=== PATIENT | female | born 1980 | race Caucasian/White ===

== ENCOUNTER 2018-12-09 08:30 | Emergency (ER) | payer SELFPAY ==
[2018-12-09] MEDS ORDERED: Sodium Chloride 0.9% 10 ML Syringe FLUSH PRN (09:08)
[2018-12-09] MEDS ORDERED: cefTRIAXone 1 GM in Sodium Chloride 0.9% 100 ML IV ONE (09:09)
[2018-12-09] MEDS ORDERED: Acetaminophen/oxyCODONE 325-5 MG Tab PO ONE (09:09)
[2018-12-09] MEDS ORDERED: Doxycycline 100 MG Cap PO ONE (09:11)
--- NOTE | 2018-12-09 09:13 | EDM.PDOC ---
ED HPI GENERAL MEDICAL PROBLEM - General Chief Complaint: Skin Complaint Stated Complaint: SKIN COMPLAINT - ABDOMEN Time Seen by Provider: 12/09/18 09:09 Source of Information: Reports: Patient History Limitations: Reports: No Limitations - History of Present Illness INITIAL COMMENTS - FREE TEXT/NARRATIVE: 38-year-old female presents to the ED with a pustule that developed on her left lower abdomen about 5 days ago that has now developed into a subcutaneous abscess. She has no systemic signs of illness such as fever chills nausea or vomiting. Pain is well localized area and it started to open up and drained. Maternal yesterday. He has recovered up with bandages. 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 She is not a diabetic. Onset: Gradual Onset Date: 12/04/18 Duration: Day(s):, Getting Worse Location: Reports: Abdomen Quality: Reports: Ache (Anteriorly), Throbbing Severity: Moderate Improves with: Reports: None Worsens with: Reports: Other (Touch) Context: Denies: Activity, Exercise, Lifting, Sick Contact, Trauma, Other Associated Symptoms: Reports: No Other Symptoms. 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.) Left Upper Abdomen Pain Score (Numeric/FACES): 8 - Related Data Allergies Allergy/AdvReac Type Severity Reaction Status Date / Time divalproex sodium Allergy Hives Verified 12/09/18 08:43 [From Depakote] Home Meds: Home Meds Doxycycline [Vibramycin] 100 mg PO BID #20 cap 12/09/18 [Rx] oxyCODONE HCl/Acetaminophen [Percocet 5-325 mg Tablet] 1 - 2 each PO Q4H PRN # 12 tablet 12/09/18 [Rx] Past Medical History Respiratory History: Reports: Asthma Genitourinary History: Reports: Other (See Below) Other Genitourinary History: recnstructed bladder 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 She had to have a total hysterectomy has was attached to her bladder and intestines . She reports she has very poor venous access since she's had some any blood transfusions and surgeries. She had surgery in [place] with her first but unfortunately this did not survive Social & Family History - Tobacco Use Smoking Status *Q: Never Smoker - Caffeine Use Caffeine Use: Reports: Coffee - Recreational Drug Use Recreational Drug Use: Yes Drug Use in Last 12 Months: No Recreational Drug Type: Reports: Marijuana/Hashish Other Recreational Drug Type: "when I was young" - Living Situation & Occupation Living situation: Reports: Occupation: Employed ED ROS GENERAL - Review of Systems Review Of Systems: See Below Constitutional: Denies: Fever, Chills, Malaise, Weakness, Fatigue, Decreased Appetite, Weight Loss HEENT: Reports: No Symptoms Respiratory: Reports: No Symptoms Cardiovascular: Reports: No Symptoms Endocrine: Reports: No Symptoms GI/Abdominal: Reports: Abdominal Pain (At site of abscess left mid and lower abdomen.) : Reports: No Symptoms Musculoskeletal: Reports: No Symptoms Skin: Reports: No Symptoms Neurological: Reports: No Symptoms Psychiatric: Reports: No Symptoms Hematologic/Lymphatic: Reports: No Symptoms Immunologic: Reports: No Symptoms ED EXAM, SKIN/RASH Exam: See Below Exam Limited By: No Limitations General Appearance: Alert, WD/WN, Anxious Respiratory/Chest: No Respiratory Distress, Lungs Clear, Normal Breath Sounds, No Accessory Muscle Use, Chest Non-Tender Cardiovascular: Normal Peripheral Pulses, Regular Rate, Rhythm, No Edema, No Gallop, No Murmur, No Rub GI/Abdominal: Other (Evidence of multiple abdominal surgeries and midline from infraumbilical to pubic symphysis. She currently has an abscess left mid abdominal wall that is approximately 7 cm in diameter. It is firm and indurated and was able to express purulent material just by gentle squeeze to obtain culture report.) Back Exam: Normal Inspection, Full Range of Motion. No: CVA Tenderness (L), CVA Tenderness (R) Extremities: Normal Inspection, Normal Range of Motion, Non-Tender, No Pedal Edema, Normal Capillary Refill Neurological: Alert, Oriented, CN II-XII Intact, Normal Cognition Psychiatric: Normal Affect, Normal Mood Skin: Warm, Dry, Erythema (Abscess left lower quadrant that are as described above with marked surrounding erythema and draining purulent material.) Location, Skin: Abdomen (Left mid lower abdomen) Characteristics: Maculopapular, Confluent Associated features: Warmth, Tenderness, Swelling, Induration, Inflammation, Weeping (Oozing purulent material.) Course - Vital Signs Last Recorded V/S: Last Vital Signs Temp 36.9 C 12/09/18 08:44 Pulse 84 12/09/18 08:44 Resp 16 12/09/18 08:44 BP 143/82 H 12/09/18 08:44 Pulse Ox 100 12/09/18 08:44 - Orders/Labs/Meds Orders: Active Orders 24 hr Category Date Time Status Peripheral IV Care [RC] . DIRECTED Care 12/09/18 09:08 Active CULTURE WOUND [RM] Stat Lab 12/09/18 09:00 Received Peripheral IV Insertion Adult [OM.PC] Stat Oth 12/09/18 09:08 Ordered Meds: Medications Discontinued Medications Generic Name Dose Route Start Last Admin Trade Name Freq PRN Reason Stop Dose Admin Doxycycline Hyclate 200 mg 12/09/18 09:11 12/09/18 09:28 Vibramycin PO 12/09/18 09:12 200 mg ONETIME ONE Administration Ceftriaxone Sodium 1 gm/ 100 mls @ 200 mls/hr 12/09/18 09:09 12/09/18 09:31 Sodium Chloride IV 12/09/18 09:38 200 mls/hr ONETIME ONE Administration Ketorolac Tromethamine 30 mg 12/09/18 09:15 12/09/18 09:29 Toradol IVPUSH 30 mg ONETIME SADA Administration Oxycodone/Acetaminophen 1 tab 12/09/18 09:09 12/09/18 09:27 Percocet 325-5 Mg PO 12/09/18 09:10 1 tab ONETIME ONE Administration Sodium Chloride 10 ml 12/09/18 09:08 12/09/18 09:34 Saline Flush FLUSH 10 ml ASDIRECTED PRN Administration Keep Vein Open - Radiology Interpretation Free Text/Narrative:: 38-year-old female presents to the ED with a evolving abscess left lower mid abdominal wall. She states she is prone to staph aureus infections and boils. This one started with a small pustule about 5 days ago and is now progressed into an abscess that is no subcutaneous. I was able to express some serosanguineous material and purulent material from the wound. Once was open and draining I used a curved hemostat and to simply open up the wound and expressed proximal be a teaspoon of pus. The wound will be irrigated and some saline gauze instilled. I will be to give her 2 g of Rocephin intravenously and oral doxycycline 200 mg now. Given Toradol 30 mg IV and 1 Percocet orally. Lucia will be able to obtain IV access at this time. - Re-Assessments/Exams Free Text/Narrative Re-Assessment/Exam: 12/09/18 10:11 IV has been established. Patient received Toradol 30 mg IV and Percocet tablet by mouth. Receive 2 g of Rocephin intravenously and doxycycline 200 mg per ora. Be discharged on dicyclomine 100 mg twice daily for the next 10 days for abdominal wall abscess. Of note the wound was packed with saline soaked Tubegauze which is to remain in place for 48 hours. Advised follow-up with her personal care physician in 48 hours time to have the packing removed and to make sure the wound is healing adequately. Departure - Departure Time of Disposition: 10:37 Disposition: Home, Self-Care 01 Condition: Fair Clinical Impression: Abscess of abdominal wall - Discharge Information *PRESCRIPTION DRUG MONITORING PROGRAM REVIEWED*: Not Applicable *COPY OF PRESCRIPTION DRUG MONITORING REPORT IN PATIENT GOLDY: Not Applicable Prescriptions: Doxycycline [Vibramycin] 100 mg PO BID #20 cap oxyCODONE HCl/Acetaminophen [Percocet 5-325 mg Tablet] 1 - 2 each PO Q4H PRN # 12 tablet PRN Reason: pain relief. Referrals: PCP,None [Primary Care Provider] - Forms: ED Department Discharge Additional Instructions: Evaluation the emergency room today in regards to development of a abdominal wall abscess left lower mid abdomen. This started as a pustule and then became and subcutaneous infection over the last 5 days. The wound was already open and starting to drain. I will put it up further with a hemostat and obtained about a teaspoon of millie pus. Cultures were obtained. She'll IV antibiotics were given in the ED Rocephin 2 g and oral doxycycline 200 mg. He also received pain medication Toradol 30 mg IV as well as Percocet tablet by mouth. Suggest continue Motrin 600 mg every 6 hours and Percocet tabs 5/325 one or 2 every 4-6 hours for pain relief as needed. The wound has been packed with a saline-soaked Tubegauz. This should remain in place for 48 hours and then you may remove it. Then filled the wound with antibiotic ointment such as bacitracin or Polysporin at bedtime and cover with a bandage. Showering daily is okay. Expect the wound to look much better over the next 48-72 hours and should be pretty well back to normal within 7 days. Continue antibiotic doxycycline 100 mg twice daily for the next 10 days to clear up infection completely. With personal care physician or return to the ED if not markedly improved in 72 hours time. - My Orders Last 24 Hours: My Active Orders 12/09/18 09:00 CULTURE WOUND [RM] Stat 12/09/18 09:08 Peripheral IV Care [RC] . DIRECTED Peripheral IV Insertion Adult [OM.PC] Stat - Assessment/Plan Last 24 Hours: My Active Orders 12/09/18 09:00 CULTURE WOUND [RM] Stat 12/09/18 09:08 Peripheral IV Care [RC] . DIRECTED Peripheral IV Insertion Adult [OM.PC] Stat
[2018-12-09] MEDS ORDERED: Ketorolac 30 MG/ML SDV IVPUSH SCH (09:15)
== END 2018-12-09 10:38 | disposition home or self-care (01) ==
LOC: JD.ED 08:30
DX: L02.211 Cutaneous abscess of abdominal wall (principal); Z88.8 Allergy status to other drugs, medicaments and biological substances
CPT/HCPCS: 87070; 96365; 96375; 99284; A9270; J0696; J1885; J7030; 87077; 87186

== ENCOUNTER 2018-12-10 21:11 | Emergency (ER) | payer SELFPAY ==
[2018-12-10] MEDS ORDERED: Sodium Chloride 0.9% 1,000 ML IV ONE (22:05)
[2018-12-10] MEDS ORDERED: Ketorolac 30 MG/ML SDV IVPUSH ONE (22:05)
--- NOTE | 2018-12-10 22:18 | EDM.PDOC ---
ED HPI GENERAL MEDICAL PROBLEM - General Chief Complaint: Skin Complaint Stated Complaint: MRSA LEFT SIDE OF ABDOMIN Time Seen by Provider: 12/10/18 21:20 Source of Information: Reports: Patient, Family History Limitations: Reports: No Limitations - History of Present Illness INITIAL COMMENTS - FREE TEXT/NARRATIVE: Pt is 38 yo F comes in today with sister after being seen yesterday here in the ED for increasing redness, pain, and possible fever regarding an abdominal abscess. The abscess was drained and packed yesterday, culture was taken ( preliminary shows probable MRSA), and she was given IV Rocephin and sent home with Percocet and Doxycycline x 10 days. She states the pain has gotten so bad that any movement makes it worse and she is only comfortable when laying down. She feels "hot", has her thermostat lower than usual, but is unsure if she has fever, as she has been taking Percocet and Advil. She is also c/o nausea and vomiting which started last night, and is unable to keep food and liquids down. The redness seems to be increasing and overall she feels worse. No other complaints at this time. Treatments PILLAR MAN: Reports: Other (see below) Other Treatments PILLAR MAN: oxyod/apap Right Upper Abdomen Pain Score (Numeric/FACES): 9 - Related Data Allergies Allergy/AdvReac Type Severity Reaction Status Date / Time divalproex sodium Allergy Hives Verified 12/09/18 08:43 [From Depakote] Home Meds: Home Meds Doxycycline [Vibramycin] 100 mg PO BID #20 cap 12/09/18 [Rx] oxyCODONE HCl/Acetaminophen [Percocet 5-325 mg Tablet] 1 - 2 each PO Q4H PRN # 12 tablet 12/09/18 [Rx] Ondansetron [Zofran ODT] 4 mg PO Q6H PRN #8 tab.dis 12/10/18 [Rx] oxyCODONE HCl/Acetaminophen [Percocet 5-325 mg Tablet] 1 - 2 each PO Q4H PRN # 12 tablet 12/10/18 [Rx] Past Medical History Respiratory History: Reports: Asthma Genitourinary History: Reports: Other (See Below) Other Genitourinary History: recnstructed bladder 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 She had to have a total hysterectomy has was attached to her bladder and intestines . She reports she has very poor venous access since she's had some any blood transfusions and surgeries. She had surgery in [place] with her first but unfortunately this did not survive Social & Family History - Tobacco Use Smoking Status *Q: Never Smoker - Caffeine Use Caffeine Use: Reports: Coffee - Recreational Drug Use Recreational Drug Use: No - Living Situation & Occupation Living situation: Reports: Occupation: Employed ED ROS GENERAL - Review of Systems Review Of Systems: See Below Constitutional: Reports: Fever, Chills. Denies: Decreased Appetite HEENT: Reports: No Symptoms Respiratory: Reports: No Symptoms. Denies: Shortness of Breath, Cough Cardiovascular: Reports: No Symptoms. Denies: Chest Pain Endocrine: Reports: No Symptoms GI/Abdominal: Reports: Abdominal Pain (LUQ where abscess is), Nausea, Vomiting. Denies: Decreased Appetite : Reports: No Symptoms Musculoskeletal: Reports: No Symptoms Skin: Reports: No Symptoms Neurological: Reports: No Symptoms Psychiatric: Reports: No Symptoms Hematologic/Lymphatic: Reports: No Symptoms Immunologic: Reports: No Symptoms ED EXAM, SKIN/RASH Exam: See Below Exam Limited By: No Limitations General Appearance: Alert, WD/WN, Mild Distress Eye Exam: Bilateral Eye: EOMI, Normal Inspection, PERRL Ears: Normal External Exam, Hearing Grossly Normal Nose: Normal Inspection, Normal Mucosa, No Blood Throat/Mouth: Normal Inspection, Normal Lips, Normal Teeth, Normal Gums, Normal Oropharynx, Normal Voice, No Airway Compromise Head: Atraumatic, Normocephalic Neck: Normal Inspection, Supple, Non-Tender, Full Range of Motion Respiratory/Chest: No Respiratory Distress, Lungs Clear, Normal Breath Sounds, No Accessory Muscle Use, Chest Non-Tender Cardiovascular: Normal Peripheral Pulses, Regular Rate, Rhythm, No Edema, No Gallop, No JVD, No Murmur, No Rub GI/Abdominal: Normal Bowel Sounds, Soft, No Organomegaly, No Distention, No Abnormal Bruit, No Mass, Guarding, Tender (RUQ) Back Exam: Normal Inspection Skin: Warm, Dry, Erythema, Increased Warmth, Wound/Incision (RUQ abscess s/p I& D w/ packing inside) Associated features: Warmth, Tenderness, Swelling, Inflammation, Weeping Course - Vital Signs Last Recorded V/S: Last Vital Signs Temp 97.8 F 12/10/18 21:29 Pulse 78 12/10/18 21:29 Resp 20 12/10/18 21:29 BP 106/66 12/10/18 21:29 Pulse Ox 98 12/10/18 21:29 - Orders/Labs/Meds Orders: Active Orders 24 hr Category Date Time Status COMPREHENSIVE METABOLIC PN,CMP [CHEM] Stat Lab 12/10/18 22:00 Received CULTURE BLOOD [BC] Stat Lab 12/10/18 22:38 Received CULTURE BLOOD [BC] Stat Lab 12/10/18 22:43 Received LACTIC ACID [CHEM] Stat Lab 12/10/18 22:38 Received Sodium Chloride 0.9% [Normal Saline] 1,000 ml Med 12/10/18 22:05 Active IV ONETIME Blood Culture x2 Reflex Set [OM.PC] Stat Oth 12/10/18 22:05 Ordered Medication Orders Sodium Chloride (Normal Saline) 1,000 mls @ 999 mls/hr IV ONETIME ONE Stop: 12/10/18 23:05 Last Admin: 12/10/18 22:17 Dose: 999 mls/hr Labs: Laboratory Tests 12/10/18 Range/Units 22:00 WBC 6.65 (3.98-10.04) K/mm3 RBC 4.91 (3.98-5.22) M/mm3 Hgb 14.2 (11.2-15.7) gm/L Hct 41.5 (34.1-44.9) % MCV 84.5 (79.4-94.8) fl MCH 28.9 (25.6-32.2) pg MCHC 34.2 (32.2-35.5) g/dl RDW Std Deviation 39.2 (36.4-46.3) fL Plt Count 292 (182-369) K/mm3 MPV 9.7 (9.4-12.3) fl Neut % (Auto) 57.4 (34.0-71.1) % Lymph % (Auto) 31.7 (19.3-51.7) % [place] % (Auto) 8.1 (4.7-12.5) % Eos % (Auto) 2.4 (0.7-5.8) Baso % (Auto) 0.2 (0.1-1.2) % Neut # (Auto) 3.82 (1.56-6.13) K/mm3 Lymph # (Auto) 2.11 (1.18-3.74) K/mm3 [place] # (Auto) 0.54 H (0.24-0.36) K/mm3 Eos # (Auto) 0.16 (0.04-0.36) K/mm3 Baso # (Auto) 0.01 (0.01-0.08) K/mm3 Meds: Medications Generic Name Dose Route Start Last Admin Trade Name Freq PRN Reason Stop Dose Admin Sodium Chloride 1,000 mls @ 999 mls/hr 12/10/18 22:05 12/10/18 22:17 Normal Saline IV 12/10/18 23:05 999 mls/hr ONETIME ONE Administration Discontinued Medications Generic Name Dose Route Start Last Admin Trade Name Freq PRN Reason Stop Dose Admin Ketorolac Tromethamine 30 mg 12/10/18 22:05 12/10/18 22:17 Toradol IVPUSH 12/10/18 22:06 30 mg ONETIME ONE Administration - Re-Assessments/Exams Free Text/Narrative Re-Assessment/Exam: 12/10/18 22:05 I have ordered CBC, CMP, LA, Blood Cultures IVF as she has been having N/V Toradol for pain 12/10/18 22:49 CBC WNL 12/10/18 23:03 Pt is feeling better and would like to go home. At this time, there does not seem to be a systemic infection and therefore reasonable to send pt home. Will call her if there is any abnormalities in her CMP, LA, or blood cultures. She has requested more pain medication, as she only has 1 Percocet left. I will give her another prescription as well as Zofran. She is agreeable to this plan. Advised to return to ED if symptoms continue to worsen. Departure - Departure Time of Disposition: 22:53 Disposition: Home, Self-Care 01 Condition: Fair Clinical Impression: Abscess - Discharge Information *PRESCRIPTION DRUG MONITORING PROGRAM REVIEWED*: Not Applicable *COPY OF PRESCRIPTION DRUG MONITORING REPORT IN PATIENT GOLDY: Not Applicable Prescriptions: Ondansetron [Zofran ODT] 4 mg PO Q6H PRN #8 tab.dis PRN Reason: Nausea oxyCODONE HCl/Acetaminophen [Percocet 5-325 mg Tablet] 1 - 2 each PO Q4H PRN # 12 tablet PRN Reason: Pain Instructions: Incision and Drainage, Care After, Skin Abscess, [id number] Referrals: PCP,None [Primary Care Provider] - Forms: ED Department Discharge Additional Instructions: You were seen in the ED today for increasing pain, redness, nausea and vomiting due to abdominal abscess. At this time, your workup was benign for infection spreading to the rest of the body. You will be called if there are any abnormalities found in your other labs. Unfortunately, this will get worse before it gets better. You were given IV fluids here and pain medication for relief. It is reasonable to send you home at this time to continue the original plan of Doxycycline x 10days and cleaning the wound as directed by the previous provider. You will be sent home with a prescription for Zofran and Percocet. Recommend follow up with your primary care provider. Return to ED if new or worsening symptoms. - My Orders Last 24 Hours: My Active Orders 12/10/18 22:00 COMPREHENSIVE METABOLIC PN,CMP [CHEM] Stat 12/10/18 22:05 Sodium Chloride 0.9% [Normal Saline] 1,000 ml IV ONETIME Blood Culture x2 Reflex Set [OM.PC] Stat 12/10/18 22:38 CULTURE BLOOD [BC] Stat LACTIC ACID [CHEM] Stat 12/10/18 22:43 CULTURE BLOOD [BC] Stat - Assessment/Plan Last 24 Hours: My Active Orders 12/10/18 22:00 COMPREHENSIVE METABOLIC PN,CMP [CHEM] Stat 12/10/18 22:05 Sodium Chloride 0.9% [Normal Saline] 1,000 ml IV ONETIME Blood Culture x2 Reflex Set [OM.PC] Stat 12/10/18 22:38 CULTURE BLOOD [BC] Stat LACTIC ACID [CHEM] Stat 12/10/18 22:43 CULTURE BLOOD [BC] Stat
== END 2018-12-10 23:31 | disposition home or self-care (01) ==
LOC: JD.ED 21:11
DX: L02.211 Cutaneous abscess of abdominal wall (principal); Z88.8 Allergy status to other drugs, medicaments and biological substances
CPT/HCPCS: 36415; 80053; 83605; 85025; 87040; 96361; 96374; 99284; J1885; J7040

== ENCOUNTER 2018-12-23 18:01 | Emergency (ER) | payer SELFPAY ==
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
[2018-12-23] MEDS ORDERED: Sodium Chloride 0.9% 1,000 ML IV SCH (18:30)
[2018-12-23] MEDS ORDERED: Nitrofurantoin Monohydrate/Macrocrystalline 100 MG Cap PO ONE (20:06)
== END 2018-12-23 20:34 | disposition home or self-care (01) ==
LOC: JD.ED 18:01
DX: S31.101A Unspecified open wound of abdominal wall, left upper quadrant without penetration into peritoneal cavity, initial encounter (principal); N39.0 Urinary tract infection, site not specified; F41.9 Anxiety disorder, unspecified; F32.9 Major depressive disorder, single episode, unspecified; Z88.8 Allergy status to other drugs, medicaments and biological substances; V89.2XXA Person injured in unspecified motor-vehicle accident, traffic, initial encounter; Y92.512 Supermarket, store or market as the place of occurrence of the external cause
CPT/HCPCS: 36415; 80053; 81003; 85025; 87804; 96360; 99284; A9270; J7040; 99283

== ENCOUNTER 2023-11-12 17:53 | Emergency (ER) | payer MEDICAID, OTHER ==
[2023-11-12] MEDS ORDERED: Sodium Chloride 0.9% 10 ML Syringe FLUSH PRN (18:24)
[2023-11-12 19:09] LABS: BASOPHILS PERCENT AUTO 0.5 % (0.0-1.0); EOSINOPHILS ABSOLUTE AUTO 0.1 K/mm3 (0.0-0.4); EOSINOPHILS PERCENT AUTO 1.3 % (0.0-6.0); HEMATOCRIT 40.9 % (37.0-47.0); HEMOGLOBIN 14.7 gm/dl (12.0-16.0); IMMATURE GRAN ABSOLUTE AUTO 0.04 K/mm3 (0.00-0.05); IMMATURE GRAN PERCENT AUTO 0.5 % (0.0-0.4); LYMPHOCYTES ABSOLUTE AUTO 2.2 K/mm3 (1.0-4.8); LYMPHOCYTES PERCENT AUTO 26.2 % (24.0-44.0); MEAN CORPUSCULAR HEMOGLOBIN 30.9 pg (28.0-32.0); MEAN CORPUSCULAR HGB CONC 35.9 g/dl (32.0-36.0); MEAN CORPUSCULAR VOLUME 86.1 fl (83.0-99.0); MEAN PLATELET VOLUME 9.5 fl (9.4-12.3); MONOCYTES ABSOLUTE AUTO 0.7 K/mm3 (0.0-0.8); MONOCYTES PERCENT AUTO 7.9 % (0.0-8.0); NEUTROPHILS ABSOLUTE AUTO 5.4 K/mm3 (1.8-7.7); NEUTROPHILS PERCENT AUTO 63.6 % (41.0-71.0); PLATELET COUNT,PLT 246 K/mm3 (150-400); RED BLOOD CELL COUNT 4.75 M/mm3 (4.10-5.30); WHITE BLOOD CELL COUNT,WBC 8.43 K/mm3 (3.9-11.3)
[2023-11-12 19:26] LABS: A/G RATIO 1.3 (1-2); ALANINE AMINOTRANSFERASE,ALT 18 U/L (14-59); ALBUMIN 4.3 g/dl (3.4-5.0); ALKALINE PHOSPHATASE 43 U/L (46-116); ANION GAP 13.7 (5-15); ASPARTATE AMNIOTRANSFERASE,AST 8 U/L (15-37); BILIRUBIN TOTAL 0.3 mg/dL (0.2-1.0); BLOOD UREA NITROGEN,BUN 11 mg/dL (7-18); BUN/CREATININE RATIO 13.8 (14-18); CALCIUM 9.2 mg/dL (8.5-10.1); CARBON DIOXIDE,CO2 26 mEq/L (21-32); CHLORIDE,CL 102 mEq/L (98-107); CREATININE 0.8 mg/dL (0.55-1.02); EST CRCL DRUG DOSING (CG) 72.45 mL/min; ESTIMATED GFR 94 mL/min (>60); GLUCOSE RANDOM 97 mg/dL (70-99); LIPASE 23 U/L (16-77); POTASSIUM,K 3.7 mEq/L (3.5-5.1); PROTEIN TOTAL,TP 7.7 g/dl (6.4-8.2); SODIUM,NA 138 mEq/L (136-145); TROPONIN I HIGH SENSITIVITY < 4 pg/mL (<=51)
[2023-11-12 19:52] LABS: CORONAVIRUS COVID-19 NAA NEGATIVE (NEGATIVE); INFLUENZA A NAA NEGATIVE (NEGATIVE); RESPIRATORY SYNCYTIAL VIR NAA NEGATIVE (NEGATIVE)
== END 2023-11-12 20:13 | disposition home or self-care (01) ==
LOC: JD.ED 17:53
DX: R07.9 Chest pain, unspecified (principal); M25.512 Pain in left shoulder; Z88.8 Allergy status to other drugs, medicaments and biological substances
CPT/HCPCS: 0241U; 36415; 71045; 80053; 83690; 84484; 85025; 85379; 93005; 99285